=== PATIENT | male | born 1950 | race Caucasian/White ===

== ENCOUNTER 2016-11-20 15:01 | Inpatient (IN) ==
[2016-11-20] MEDS ORDERED: NS 2,000 ML ONE (15:11)
[2016-11-20] MEDS ORDERED: NS 1,000 ML IV ONE ×6 (15:22→18:13)
[2016-11-20] MEDS ORDERED: ZOSYN 3.375 GM/NS 3.375 GM/50 ML IVPB IV ONE (16:19)
--- NOTE | 2016-11-20 16:54 | PROVIDER DOCUMENTATION ---
This chart was entered by Jamie Dyer Scribe, acting as scribe for Cyn May MD. HPI-Neurological Disorder - General Time Seen by Provider: 11/20/16 15:01 Source: EMS, [facility] records Unable to obtain history due to:: altered Allergies/Adverse Reactions: Patient Allergies Allergy/AdvReac Type Severity Reaction Status Date / Time No Known Allergies Allergy Verified 05/01/15 17:43 Home Medications: Home Medication List Medication Instructions Recorded Confirmed Last Taken Type Gabapentin [Neurontin] 800 mg PO TID 10/11/13 05/01/15 04/30/15 21:00 History LISINOpril [Prinivil] 20 mg PO DAILY 10/22/13 05/01/15 04/30/15 21:00 History Montelukast [Singulair] 10 mg PO DAILY 10/22/13 05/01/15 04/30/15 21:00 History Nifedipine [Nifedipine ER] 60 mg PO DAILY 10/22/13 05/01/15 04/30/15 21:00 History Sertraline [Zoloft] 50 mg PO DAILY 10/22/13 05/01/15 04/30/15 21:00 History Simvastatin 40 mg PO HS 10/22/13 05/01/15 04/30/15 21:00 History Cyclobenzaprine [Flexeril] 10 mg PO TID #20 tablet 05/01/15 Unknown Rx Famotidine [Pepcid] 20 mg PO DAILY #20 tablet 05/01/15 Unknown Rx Ibuprofen 400 mg PO Q4-6H PRN PRN #90 tablet 05/01/15 Unknown Rx Metformin E.r. [Glucophage Xr] 500 mg PO BID CC 05/01/15 05/01/15 04/30/15 21: 00 History - History of Present Illness-Neuro Nature of Presenting Problem: patient is a 66 y/o M that presents with respiratory distress and AMS x 1 day. Patient o2 was 83% on RA. patient was also hypotensive. Patient is confused Severity: reports: severe Onset/Duration: reports: gradual, 24 hours ago Timing: reports: still present, getting worse Context: reports: found unresponsive by [facility]dc staff Character of Altered Mental Status: reports: unresponsive, decreased responsiveness Associated Symptoms: reports: confusion. denies: fever/chills Similar Symptoms Previously?: No Recently seen or treated by another doctor?: Yes Review of Systems - Adult - REVIEW OF SYSTEMS - ADULT ROS:: unobtainable per condition Constitutional: reports: see HPI Eyes: reports: no symptoms reported Ears, Nose, Mouth & Throat: reports: no symptoms reported Cardiovascular: reports: no symptoms reported Respiratory: reports: see HPI Gastrointestinal: reports: no symptoms reported Genitourinary: reports: no symptoms reported Musculoskeletal: reports: no symptoms reported Integumentary: reports: no symptoms reported Neurological: reports: see HPI Psychiatric: reports: no symptoms reported Endocrine: reports: no symptoms reported Hematologic/Lymphatic: reports: no symptoms reported Allergic/Immunologic: reports: no symptoms reported All Other Systems: Reviewed and Negative Past History - Adult - PAST MEDICAL HISTORY-ADULT Review of Records: reports: Medications Reviewed Major Childhood Illnesses: reports: denies history Cardiovascular: reports: CAD, CHF, HTN, hyperlipidemia Respiratory: reports: COPD Gastrointestinal: reports: GERD Genitourinary: reports: incontinence Neurological: reports: CVA Psychiatric: reports: depression Other Conditions: reports: other cancer (basal cell carcinoma), other ( neuropathy) - PRIOR SURGERIES/PROCEDURES Surgical/Procedure History: reports: other (prostatectomy, TURP) - PRIOR HOSPITALIZATIONS Prior Hospitalizations: reports: none - IMMUNIZATION STATUS Childhood Immunizations: See Nurse Assessment Flu Vaccine: See Nurse Assessment - FAMILY HISTORY Family History: reviewed, not pertinent - SOCIAL HISTORY Living Situation: care facility Physical Exam- Neurological - Physical Exam-Neuro Exam Limited by: pt condition Initial Vital Signs Reviewed: Yes General Appearance: moderate distress, severe distress, lethargic, slow to respond Eye Exam: bilateral eye: normal inspection, PERRL HENMT: normocephalic/atraumatic, TMs normal, other (dry oral mucosa) Cardiovascular: no JVD, tachycardia Abdominal Exam: normal bowel sounds, non tender, soft Extremity: no pedal edema, pelvis stable Integumentary: normal color, warm/dry Psych/Mental Status: other (lethargic) Progress - CONSULTS/PCP/HOSPITALIST Notification #1 *Consult/PCP/Hospitalist*: Time Discussed: 16:31 Consult Disposition: Will see in ED, Admit Departure - Departure Date of Disposition Decision: 11/20/16 Time of Disposition Decision: 16:47 DIAGNOSIS: Hypotension, Sepsis, Altered mental status Disposition: ADMITTED INPATIENT 09 Certified Medical Emergency: Emergent Condition: Stable Referrals and Follow-Ups: TEOFILO YANG [Primary Care Provider] - - Critical Care Note This patient required my direct & personal management of CC.: Yes Total Time (mins): 45 Critical Care Statement: This patient required my direct personal management to treat or rule out processes, the absence of which, could potentiallly result in sudden, clinically significant life or limb threatening deterioration. This chart was documented by the indicated scribe, (Jamie Dyer, Maritza) and accurately reflects the services I performed and decisions made by me, Cyn May MD, as attested by the provider's signature.
[2016-11-20] MEDS ORDERED: PHENERGAN IM ONE (16:55)
[2016-11-20] MEDS ORDERED: DILAUDID IM ONE (16:55)
[2016-11-20 17:07] LABS: COLOR ORANGE; UR EPITHELIAL CELLS <10 /HPF (<10); URINE BACTERIA NEGATIVE /HPF; URINE RBC <10 /HPF (<10); URINE SOURCE CATH
[2016-11-20 17:08] LABS: BILIRUBIN URINE NEGATIVE (NEGATIVE); BLOOD URINE SMALL (NEGATIVE); GLUCOSE URINE TRACE mg/dL (NEGATIVE); LEUKOCYTES URINE MODERATE (NEGATIVE); NITRITE URINE NEGATIVE (NEGATIVE); PH URINE 5.5; PROTEIN URINE 200 mg/dL (NEGATIVE); SP GRAVITY URINE 1.024; TURBIDITY URINE TURBID (CLEAR); URINE CULTURE NEEDED? YES; URINE MICRO REVIEW NEEDED? YES; UROBILINOGEN URINE NORMAL (NORMAL)
[2016-11-20 17:09] LABS: URINE CASTS GRANULAR PRESENT
[2016-11-20 17:10] LABS: UR AMPHETAMINES QUAL NONE DETECTED (NONE DETECT); UR BARBITUATES QUAL NONE DETECTED (NONE DETECT); UR BENZODIAZEPIN QUAL NONE DETECTED (NONE DETECT); UR CANNABINOIDS QUAL NONE DETECTED (NONE DETECT); UR COCAINE QUAL NONE DETECTED (NONE DETECT); UR METHADONE QUAL NONE DETECTED (NONE DETECT); UR OPIATES QUAL NONE DETECTED (NONE DETECT); UR OXYCODONE QUAL NONE DETECTED (NONE DETECT); UR PCP QUAL NONE DETECTED (NONE DETECT)
--- NOTE | 2016-11-20 17:12 | Diag Imaging Result Doc PS360 ---
EXAM: HEAD W/O CONTRAST HISTORY: FALL TECHNIQUE: Dose reduction protocol COMPARISON: None. FINDINGS: No parenchymal hemorrhage. No epidural or subdural hematoma. No subarachnoid hemorrhage. No mass identified on this noncontrasted exam. No hydrocephalus. There is fluid in the right mastoid sinus and right inner ear. IMPRESSION: No hemorrhage. No injury. Electronically signed by Jd Singleton 11/20/2016 5:09 PM
[2016-11-20 17:14] LABS: INR 1.04; PROTIME 10.9 Seconds (9.2-11.7); PTT 32.5 Seconds (22.0-36.0)
[2016-11-20 17:20] LABS: POTASSIUM 4.4 mmol/L (3.5-5.1)
[2016-11-20 17:21] LABS: ALBUMIN 4.2 g/dL (3.5-5.0); CALCIUM 9.6 mg/dL (8.8-10.2); TOTAL BILIRUBIN 0.3 mg/dL (0.20-1.00); TOTAL PROTEIN 7.5 g/dL (6.3-8.3)
[2016-11-20 17:26] LABS: HEMATOCRIT 43.5 % (42.0-52.0); HEMOGLOBIN 14.8 g/dL (14.0-18.0); LYMPH% 2.5 % (20.5-51.1); MCH 29.4 PG (27-31); MCV 86.5 FL (81-99); MPV 9.9 FL (7.4-10.4); NEUT% 90.8 % (42.2-75.2); PLT 469 X1000 (130-400); RBC 5.03 XMIL (4.7-6.1)
[2016-11-20 17:27] LABS: BASO% 0.1 % (0.0-0.8); IMM GRAN% 0.4 % (0.0-0.5); MONO% 6.2 % (1.7-9.3)
[2016-11-20 17:28] LABS: IMM GRAN# 0.14 X1000 (0.0-0.04); LYMPH# 0.88 X1000 (1.2-3.4); MANUAL DIFF NEEDED? YES; MONO# 2.19 X1000 (0.11-0.59)
[2016-11-20 17:29] LABS: LYMPHS 3 % (21-51); MONO 3 % (1-9)
[2016-11-20 17:55] LABS: ALLEN TEST YES; BE -11.3 mmoll (-3.0-3.0); BLOOD TYPE ARTERIAL; DRAW SITE R RADIAL; METHB 0.9 % (0.0-1.5); O2(CT) 19.6 mL/dL (15.0-23.0); PCO2(98.6) 37 mmHg (35-45); PO2(98.6) 108 mmHg (60-100); SAMPLE BLOOD; SAO2 99.3 % (95.0-100.0); THB 14.3 g/dL (11.5-17.4); pH(98.6) 7.23 (7.35-7.45)
[2016-11-20 17:57] LABS: MODALITY CANNULA
[2016-11-20] MEDS ORDERED: ZOSYN 3.375 GM/NS 3.375 GM/50 ML IVPB IV SCH (18:00)
[2016-11-20] MEDS: MERREM 500 MG in NS 50 ML IV SCH (18:00)
[2016-11-20] MEDS ORDERED: LEVOPHED 8 MG in D5 1/2 NS 250 ML IV SCH (19:30)
--- NOTE | 2016-11-20 19:35 | Diag Imaging Result Doc PS360 ---
EXAM: CHEST-PORTABLE HISTORY: sob TECHNIQUE: Portable AP COMPARISON: 01/02/2015 FINDINGS: The lungs are well expanded. The heart is not enlarged. The vessels are not distended. No consolidation. No pleural effusions identified. There is a small amount of scarring in the upper right lung. IMPRESSION: No acute abnormality. Electronically signed by Jd Singleton 11/20/2016 7:33 PM
--- NOTE | 2016-11-20 20:05 | HISTORY AND PHYSICAL ---
PRIMARY CARE PROVIDER: CHAZ Martin. CHIEF COMPLAINT: Patient is nonverbal but family previously stated that he had respiratory difficulties that started yesterday. HISTORY OF PRESENT ILLNESS: Mr. Irsa Harmon Jr. is a 66-year-old male who currently is nonverbal and medical history is obtained through old ER records which reveals that he has a history of CAD, CHF, hypertension, hyperlipidemia, COPD, GERD, incontinence, CVA , depression, neuropathy who apparently lives with son and [id number] who were not present at this time. Patient just returned from a CAT scan. He is nonverbal. He has difficulty, he is coughing up phlegm requiring deep Yankauer suctioning. Apparently he had low O2 saturations on admit and was placed on nasal cannula. White blood cells revealed was 35,000 but afebrile. His lactate was up at 3.3. He received a couple of L of IV fluids which returned his blood pressure from low 60s to low 100s systolic. Also found to have a creatinine of 8.8 with a baseline in 2015 of 0.8. We will admit to ICU. Consult Infectious Disease, Nephrology and pulmonology for support and assistance. PAST MEDICAL HISTORY: As reported via old ER records. 1. Coronary artery disease. 2. Congestive heart failure, type unknown. 3. Hypertension. 4. Hyperlipidemia. 5. COPD. Apparently he used to have home O2, but being unable to afford oxygen it was removed. 6. GERD.. 7. Urinary incontinence. 8. CVA. 9. Depression. 10. Diabetes mellitus type 2. PAST SURGICAL HISTORY: Obtained through old ER records. 1. Prostatectomy 2. TURP. SOCIAL HISTORY: Unknown. FAMILY HISTORY: Unknown. REVIEW OF SYSTEMS: Unable to obtain. ALLERGIES: No known drug allergies. HOME MEDICATIONS: Unable to be reconciled and have not been updated but it does consist of simvastatin, Zoloft, nifedipine, Singulair, Glucophage, lisinopril, ibuprofen, Neurontin, Pepcid and Flexeril. PHYSICAL EXAMINATION: VITAL SIGNS: Temperature 97.7 degrees, heart rate 118, respiratory rate 31, blood pressure 84/54, saturation 98% on nasal cannula. GENERAL: Mr. Isra Harmon Jr. is a 66-year-old male who is in acute distress. He is unable to answer questions. He will not follow commands. HEENT: Atraumatic, normocephalic. Pupils are equal and reactive. Mucous membranes are moist with thick phlegm and oral secretions. NECK: No JVD or carotid bruits. CARDIOVASCULAR: S1-S2, tachycardic rate and rhythm. No rubs, gallops, murmurs. PULMONARY: Coarse throughout with some mild accessory muscle use and frequently coughing requiring deep oropharyngeal suctioning. Currently on nasal cannula. GASTROINTESTINAL: Soft, round, obese, positive bowel sounds x4, nontender. EXTREMITIES: +1 dorsalis pedal pulses, +2 radial pulses. No edema noted in the lower extremities. NEUROLOGIC: Unable to follow commands, grunts. SKIN: Cool extremities, dry, intact. LABORATORY DATA: White blood cells 35,000, hemoglobin 14, hematocrit 43, platelet count 469,000. INR 1.04. PTT is 32.5. ABGs on 5 L nasal cannula: pH 7.23, pCO2 37, PO2 of 108 , bicarbonate 16, base excess -11, saturation 96%, lactate 1.4 on ABGs. Sodium 137, potassium 4.4 , BUN 65, creatinine 8.8, glucose 160, calcium 9.6, bilirubin 0.30, AST 13, ALT 11, CK 163 , troponin less than 0.01. Plasma lactate: First set 3.3, second set 2.4 after IV fluids. Urinalysis: 200 protein, small blood, moderate leukocytes, 10-20 white blood cells, negative bacteria, granular casts present. Urine drug screen negative. Alcohol 0. IMAGING: Head CT: No hemorrhage or injury. Chest x-ray has been obtained but not resulted. ASSESSMENT AND PLAN: 1. Sepsis with unknown site of origin. Awaiting blood cultures. Chest x-ray is negative. He is afebrile with a lactate of 3.3. He has hypotension requiring 2 IV fluid boluses to improve blood pressure. He has been started on meropenem and Zosyn. Infectious Disease has been consulted. 2. Acute kidney injury, likely acute tubular necrosis. He has had aggressive IV fluid hydration. Renal has been consulted. Renal ultrasound ordered. Urine studies obtained and will withhold any nephrotoxic medications. 3. Metabolic acidosis, again receiving aggressive IV fluid hydration. Nephrology has been consulted. 4. Hypotension likely secondary to sepsic shock. Will receive IV fluid hydration. If needed, we will add Levophed to support blood pressure. 5. History of coronary artery disease. 6. Congestive heart failure, type unknown. We will have echocardiogram performed. 7. Hypertension. Currently hypotensive. 8. Hyperlipidemia. Holding medications. 9. Chronic obstructive pulmonary disease. No exacerbation. Apparently requires home O2. 10. History of cerebrovascular accident. Head CT was negative for any acute findings at this time. 11. Metabolic encephalopathy. Very altered at this time. Currently nonverbal. 12. Gastroesophageal reflux disease.. We will do IV Pepcid. Dictated by CHAZ Asif for Stevie Radford MD cc: CHAZ Asif MD [facility]
[2016-11-20] MEDS: ZOFRAN IV PRN (21:51)
[2016-11-20] MEDS: NS 1,000 ML IV SCH (22:17)
[2016-11-20] MEDS: HEPARIN SUBQ SCH (22:17)
[2016-11-20] MEDS: HUMULIN R SUBQ SCH (22:29)
[2016-11-20] MEDS: ATROVENT NEB INH SCH (23:48)
[2016-11-20] MEDS: XOPENEX NEB INH SCH (23:49)
[2016-11-21] MEDS: MERREM 500 MG in NS 50 ML IV SCH ×3 (02:55→18:35)
[2016-11-21] MEDS: ATROVENT NEB INH SCH ×7 (03:49→22:47)
[2016-11-21] MEDS: XOPENEX NEB INH SCH ×7 (03:49→22:47)
[2016-11-21 05:06] LABS: ALLEN TEST NO; BE -11.8 mmoll (-3.0-3.0); BLOOD TYPE ARTERIAL; DRAW SITE R BRACHIAL; METHB 1.5 % (0.0-1.5); O2(CT) 17.6 mL/dL (15.0-23.0); PCO2(98.6) 34 mmHg (35-45); PO2(98.6) 137 mmHg (60-100); SAMPLE BLOOD; THB 12.8 g/dL (11.5-17.4); pH(98.6) 7.24 (7.35-7.45)
[2016-11-21 05:11] LABS: MODALITY CANNULA
[2016-11-21 05:43] LABS: HEMATOCRIT 37.6 % (42.0-52.0); HEMOGLOBIN 12.7 g/dL (14.0-18.0); IMM GRAN% 0.4 % (0.0-0.5); LYMPH# 1.38 X1000 (1.2-3.4); LYMPH% 5.1 % (20.5-51.1); MANUAL DIFF NEEDED? YES; MCH 29.6 PG (27-31); MCHC 33.8 g/dL (33-37); MCV 87.6 FL (81-99); MONO# 2.47 X1000 (0.11-0.59); MONO% 9.1 % (1.7-9.3); MPV 9.7 FL (7.4-10.4); NEUT% 85.4 % (42.2-75.2); PLT 371 X1000 (130-400); RBC 4.29 XMIL (4.7-6.1)
[2016-11-21] MEDS: MUCOMYST 20% INH SCH ×3 (05:48→19:19)
[2016-11-21] MEDS: PULMICORT INH SCH ×3 (05:48→19:19)
[2016-11-21 05:51] LABS: CALCIUM 8.4 mg/dL (8.8-10.2); POTASSIUM 3.6 mmol/L (3.5-5.1); TOTAL BILIRUBIN 0.18 mg/dL (0.20-1.00); TOTAL PROTEIN 6.5 g/dL (6.3-8.3)
[2016-11-21 06:13] LABS: INR 1.05; PROTIME 11.1 Seconds (9.2-11.7); PTT 29.9 Seconds (22.0-36.0)
[2016-11-21] MEDS: NS 1,000 ML IV SCH ×5 (06:25→21:43)
[2016-11-21] MEDS: HUMULIN R SUBQ SCH ×4 (06:29→20:37)
--- NOTE | 2016-11-21 06:30 | Diag Imaging Result Doc PS360 ---
EXAM: CHEST-PORTABLE HISTORY: NG TUBE PLACEMENT TECHNIQUE: Portable chest abdomen COMPARISON: 11/20/2016 FINDINGS: No nasogastric tube is identified. A nasogastric tube does not in the stomach. The lung bases are clear. No cardiomegaly. IMPRESSION: No nasogastric tube is identified. Electronically signed by Jd Singleton 11/21/2016 6:27 AM
[2016-11-21 07:39] LABS: BANDS 2 % (0-1); LYMPHS 10 % (21-51); MONO 10 % (1-9)
--- NOTE | 2016-11-21 08:57 | CONSULTATION ---
DATE OF CONSULTATION: 11/21/2016 REFERRING PHYSICIAN: Dr. Quach. CHIEF COMPLAINT: Respiratory distress. HISTORY OF PRESENT ILLNESS: This is a 66-year-old male with past medical history of CAD, CHF, hypertension, hyperlipidemia, COPD, GERD, CVA, depression and diabetes that presented to the hospital with respiratory distress, productive cough, respiratory failure, and renal failure. He was admitted to the intensive care unit for close monitoring and evaluation. Patient is nonverbal and unable to answer questions at this time. History is gleaned from medical records. REVIEW OF SYSTEMS: Unable to obtain. PAST MEDICAL HISTORY: As mentioned in the HPI, otherwise noncontributory. PAST SURGICAL HISTORY: Prostatectomy, TURP. SOCIAL HISTORY: Unknown. FAMILY HISTORY: Unknown. ALLERGIES: No known drug allergies. ACTIVE MEDICATIONS: DuoNebs, Mucomyst, Pulmicort, Humulin R, Atrovent, Xopenex, Merrem, Levophed, Zofran. PHYSICAL EXAMINATION: Vital Signs: Blood pressure 122/65, heart rate 112, respiratory rate 24, temperature 97.9, oxygen saturation 94%. General: Lying in bed, wearing a non-rebreather, nonverbal, mild respiratory distress noted. HEENT: Normocephalic and atraumatic. PERRL. Cardiovascular: Tachycardic rate. S1, S2 present. Chest: Reduced entry with some scattered rhonchi. Abdomen: Soft. Bowel sounds present in all quadrants. Extremities: Distal pulses palpable. +1 edema. Neuro: Unable to assess. LABS/INVESTIGATIONS: WBC 27.08, RBCs 4.29, hemoglobin 12.7, hematocrit 37.6, platelet count 371. Sodium 145, potassium 3.6, chloride 113, carbon dioxide 14, anion gap 18, BUN 69, creatinine 5.2, glucose 108. Blood gas reveals a pH of 7.24, pCO2 of 34, PO2 of 137, HC03 of 15.7, base excess - 11.8, saturated oxygen 99. Chest x-ray performed on 11/20/2016 shows clear lung bases. ASSESSMENT AND PLAN: This is a 66-year-old male with a past medical history mentioned in the history of present illness that was admitted to the intensive care unit for sepsis of unknown origin. Blood cultures pending. He is receiving rehydration with intravenous fluids, Levophed for hypotension. Also has acute kidney injury. Nephrology is following. Echocardiogram ordered for congestive heart failure. He did have some dark brown emesis suctioned through the night. He will receive Pepcid for gastrointestinal prophylaxis. Further recommendations pending diagnostic studies. Thank you for the courtesy of this consult. Dictated by CHAZ Hernandez for Len Goff MD cc: CHAZ Hernandez MD
[2016-11-21] MEDS: HEPARIN SUBQ SCH ×2 (09:19→20:34)
--- NOTE | 2016-11-21 09:53 | PROGRESS NOTE ---
DATE: 11/21/2016 SUBJECTIVE: Mr. Harmon is in restraints. He is really not answer questions just mumbling but does respond to touch and voice. Blood pressure doing a little better. Appears to be a little more comfortable. He is a 66-year-old male who currently is nonverbal and medical history was obtained from old ER records. He has a history of coronary artery disease, congestive heart failure, hypertension, hyperlipidemia, COPD, gastroesophageal reflux and incontinence. CVA, depression, neuropathy. He lives with his son and [id number]. He had return from a CAT scan. He presented to the emergency room having respiratory difficulties. White blood cells were 35,000. Lactate was 3.3. He was admitted with sepsis, unknown etiology. Chest x-ray was negative. Lactate level elevated at 3.3 and hypotension. Gave him IV fluids, and he was started on meropenem and then Zosyn initially. He has acute kidney injury, metabolic acidosis, hypotension. This is with an underlying history of coronary artery disease, congestive heart failure, hypertension, hyperlipidemia, and COPD. PHYSICAL EXAMINATION: Today, he is still requiring stains. He still appears very confused. He is awake and he does mumble but does not answer questions specifically. Temperature 98 degrees, pulse 100, respirations 20, blood pressure 119/67. Pupils are equal and reactive. CVP is less than 6 cm. Lungs are clear in all lung baptiste. Cardiovascular: Regular rate without murmur or S3. Abdomen is soft. Skin is warm and dry. Urine output was over a liter. White count 27,080. Hematocrit 37, platelet count 371,000. Sodium 145, potassium 3.6, chloride 113. BUN 69, creatinine 5.2. Liver functions are normal. Pro-time 11.1. Urine toxicology done on 11/20/2016 was negative. Blood gas yesterday: pH 7.24, pCO2 of 34, PO2 was 137, FiO2 of 36%, O2 saturation 96%. Chest x-ray repeated yesterday. No nasogastric tube identified. Lung bases were clear. ASSESSMENT AND PLAN: Patient admitted with sepsis of unknown origin. Blood cultures pending, received rehydration and a little bit of Levophed. He had acute kidney injury. It appears to be improving. He does have an echocardiogram ordered to look at left ventricular function. Review of his orders. He is on sliding scale insulin. Sugars appear to be between 95 and 129. Blood pressure appears improved. I do not see any change at this point. cc: Solitario Grimes MD
--- NOTE | 2016-11-21 11:34 | CONSULTATION ---
DATE OF CONSULTATION: 11/21/2016 INCOMPLETE REPORT-DICTATION STARTS HERE REASON FOR CONSULTATION: Acute kidney injury. HISTORY OF PRESENT ILLNESS: The patient is unable to give any history. He simply repeats "please help me Erick." The chart reflects past medical history of heart failure, hypertension, hyperlipidemia, COPD, history of a stroke and diabetes. He was brought to the emergency room with respiratory distress, cough, respiratory failure and kidney failure. No other history is obtainable. There is no family. PAST MEDICAL HISTORY: As above. LISTED HOME MEDICATIONS: None are listed. ALLERGIES: None are known. SOCIAL HISTORY, FAMILY HISTORY, AND REVIEW OF SYSTEMS: Otherwise not obtainable. PHYSICAL EXAMINATION: Vital Signs: Blood pressure 119/67, heart rate 101, respirations 20, afebrile. Intake 4.2 L, output 600 mL. There is about 300 mL in the bag from this morning. General: He is a chronically ill man, appears older than stated age. Awake, alert, spontaneously verbalizing, but again only repeats 1 phrase. No acute distress. Skin: Warm and dry. Conjunctivae are pink. Pupils are equal. Faint corneal arcus is present. Oropharynx is dry. Poor dentition. Neck: Supple. Trachea is midline. Neck veins are not visible. Heart: Tachycardic and somewhat irregular. No gallops, murmurs or rubs. Lungs: Have equal breath sounds. Poor participation with exam but no crackles or wheezes or rhonchi are audible. Abdomen: Soft and nontender. Bowel sounds are diminished but present. No organomegaly or masses or bruits. Extremities: Have no edema, clubbing, or cyanosis. Neurologic Exam: Grossly nonfocal and his facial muscles are symmetrical. He moves all extremities. He does follow the simple command to protrude the tongue but then perseverates on that as well. LABORATORY DATA: Sodium 145, potassium 3.6, chloride 113, bicarbonate 14, BUN 69, creatinine 5.2, hemoglobin 12.7, white blood cell count [id number]. Urine with 2+ protein, 1+ blood , moderate leukocytes, negative for bacteria. IMPRESSION: 1. Acute kidney injury. No data in the last 2 years, but his last creatinine was 0.8 in April,. He has not had imaging of the abdomen today. His creatinine has improved with volume resuscitation, and we will continue that intervention today. Check urine electrolytes, and check a renal ultrasound. 2. Acid-base. He has a metabolic acidosis with overlying respiratory acidosis. His anion gap acidosis has both gap and non-gap components. These are consistent with his kidney disease. Given the current pH and our shortage of IV bicarbonate, I will continue to replace him with normal saline and observe. 2. Electrolytes are acceptable. 3. Anemia. His hemoglobin has fallen with volume resuscitation. Hemoconcentration. 4. Leukocytosis. He is on empiric antibiotics. cc: Milo Hilario MD cc: Milo Hilario MD [facility]
--- NOTE | 2016-11-21 12:13 | PROGRESS NOTE ---
DATE: 11/21/2016 ADDENDUM: Note that he had a creatinine of 8.8 when he presented. Presume this is acute tubular necrosis. This is improving. Continue present fluids at 125. We will follow his a basic metabolic profile and check a magnesium again in the morning. Volume status looks good. As I said, his renal function is improving. cc: Solitario Grimes MD
[2016-11-21] MEDS ORDERED: PROTONIX IV SCH (12:30)
[2016-11-21] MEDS ORDERED: SODIUM CHLORIDE 0.9% INJ SCH (12:30)
[2016-11-21] MEDS: SODIUM CHLORIDE 0.9% INJ SCH (13:14)
[2016-11-21] MEDS: PEPCID IV SCH ×2 (13:14→23:59)
[2016-11-21] MEDS: ZOFRAN IV PRN (13:14)
[2016-11-21 13:37] LABS: URINE SOURCE CATH
[2016-11-21 13:44] LABS: BILIRUBIN URINE NEGATIVE (NEGATIVE); BLOOD URINE LARGE (NEGATIVE); COLOR YELLOW; GLUCOSE URINE NEGATIVE (NEGATIVE); LEUKOCYTES URINE MODERATE (NEGATIVE); NITRITE URINE NEGATIVE (NEGATIVE); PROTEIN URINE 70 mg/dL (NEGATIVE); SP GRAVITY URINE 1.017; TURBIDITY URINE HAZY (CLEAR); UROBILINOGEN URINE NORMAL (NORMAL)
[2016-11-21 13:45] LABS: URINE MICRO REVIEW NEEDED? YES
[2016-11-21 13:47] LABS: UR EPITHELIAL CELLS <10 /HPF (<10); URINE BACTERIA NEGATIVE /HPF; URINE RBC TNTC /HPF (<10)
[2016-11-21 13:53] LABS: URINE CASTS NONE SEEN
[2016-11-21 14:01] LABS: UR CREAT RANDOM 229.8 mg/dL (14-26); UR PROT RANDOM 80.7 mg/dL
--- NOTE | 2016-11-21 17:06 | ECHO REPORT ---
ORDER DATE: 11/20/2016 INDICATION: Shortness of breath and coronary artery disease. M-MODE MEASUREMENTS: Right ventricle: Could not be measured. Left ventricle end diastole: Roughly 4.7 cm. Left ventricle end systole: Grossly 3.5 cm. Posterior wall: Grossly 1.2 cm. Interventricular septum: Grossly 1.3 cm. Left atrium: 1.9 cm. Aortic root: 2.9 cm. These are the best estimations. The patient has a very limited acoustic window. SUMMARY OF 2-DIMENSIONAL IMAGIN. This study is technically limits. 2. The lower left ventricular systolic function could not be accurately estimated. Several antunez are not visualized therefore the ejection fraction may be anywhere from normal to mildly impaired. 3. This study needs to be repeated at some point when the patient is in better general condition. 4. The mitral valve appears to be grossly normal as well as the aortic valve. 5. Doppler interrogation could not be carried out with accuracy. 6. The pulmonic valve was not visualized. 7. The tricuspid valve was also not well visualized. 8. The inferior vena cava is probably borderline enlarged. 9. There is no pericardial effusion. Again, this study is extremely limited. It should probably be repeated down the road when the patient is more stable. cc: MD Betsy Santos CRNP
--- NOTE | 2016-11-21 18:28 | CONSULTATION ---
DATE OF CONSULTATION: 11/21/2016 CONCLUSION: Patient is admitted the hospital in a septic condition. The exact origin of his sepsis is uncertain to me at this time. The patient is in renal failure presumably as a result of his sepsis. RECOMMENDATIONS: I agree with treating the patient with meropenem. To this, I am going to add daptomycin, the dose of which will be modified because of the patient's renal failure. DISCUSSION: The patient is unable to provide a history. The history that I obtained about the patient was from review of the data in the computer. The patient became nonverbal and had developed respiratory distress. He was brought to the emergency room and then put in the intensive care unit. MEDICAL HISTORY: Positive for coronary artery disease, congestive heart failure , hypertension, hyperlipidemia, COPD, gastroesophageal reflux disease, urinary incontinence, stroke, depression and diabetes mellitus. PAST SURGICAL HISTORY: Positive for prostatectomy and transurethral resection of the prostate. SOCIAL HISTORY: Unknown. FAMILY HISTORY: Unknown. REVIEW OF SYSTEMS: Unable to be obtained. ALLERGIES: The patient has no known drug allergies. HOME MEDICATIONS: Simvastatin, Zoloft, nifedipine, Singulair, Glucophage, lisinopril, ibuprofen, Neurontin, Pepcid and Flexeril. LABORATORY AND X-RAY STUDIES: CBC with a white count of 27,080, hemoglobin 12.7 , and platelet count 371,000. Patient's blood gases show a pH of 7.24, PO2 of 137, a pCO2 of 34. Patient's creatinine is 5.2, GFR is 11. Liver function studies are normal. Urinalysis showed white cells and red cells, but no bacteria. Urine culture is negative thus far. Blood cultures are pending. Chest x-ray shows clear lung baptiste. Patient is receiving meropenem and to this I am going to add daptomycin. PHYSICAL EXAMINATION: Vital signs: Temperature is 97.1 degrees, pulse 97, respirations 20, blood pressure 104/57. General: This is an ill-appearing, elderly male who is delirious. Head, eyes, ears, nose, and throat: He had noted no drainage was noted from the nose or ears. I could not get a good look into the patient's mouth. Neck: No meningismus. Thorax: Increased AP diameter of the chest. Lungs: Clear to auscultation. Cardiovascular: Heart rate was regular and rapid. Abdomen: Soft and nontender. It does seem a little distended. Neurologic: The patient is delirious. He was saying things that I could not understand at all. He did not answer questions. He did not follow request to move his arms and legs, but on his own he moved both arms and both legs. Integument: No rash noted. Thank you for the consult. cc: Maykel Moreno MD MTDD
[2016-11-21] MEDS ORDERED: CUBICIN 500 MG in NS 100 ML IV SCH ×2 (18:45→20:00)
--- NOTE | 2016-11-21 20:19 | Diag Imaging Result Doc PS360 ---
EXAM: US RENAL 2 (RETROPER) COMPLETE HISTORY: mal TECHNIQUE: Portable COMPARISON: None. FINDINGS: The right kidney measures 11.3 x 4.8 x 5.1 cm. Mild increased renal echotexture. Normal cortical thickness. No renal stones or hydronephrosis. No renal mass. The left kidney measures 12.4 x 4.5 x 5.6 cm. Normal cortical thickness. There is an 8 mm nonobstructing upper pole stone. No hydronephrosis. A 2.2 cm cyst arises from the lower pole. IMPRESSION: 1.Mild increased echotexture which can be seen with medical renal disease 2.Nonobstructing left renal stone as well as a small left renal cyst Electronically signed by Jd Singleton 11/21/2016 8:17 PM
[2016-11-22] MEDS: NS 1,000 ML IV SCH (00:02)
[2016-11-22] MEDS: SODIUM CHLORIDE 0.9% INJ SCH ×3 (01:40→23:46)
[2016-11-22] MEDS: ATROVENT NEB INH SCH ×6 (02:42→23:06)
[2016-11-22] MEDS: XOPENEX NEB INH SCH ×6 (02:42→23:06)
[2016-11-22] MEDS: MERREM 500 MG in NS 50 ML IV SCH ×3 (03:07→15:42)
[2016-11-22 04:13] LABS: ALLEN TEST YES; BE -7.3 mmoll (-3.0-3.0); BLOOD TYPE ARTERIAL; DRAW SITE R RADIAL; METHB 1.4 % (0.0-1.5); O2(CT) 23.8 mL/dL (15.0-23.0); PCO2(98.6) 36 mmHg (35-45); PO2(98.6) 83 mmHg (60-100); SAMPLE BLOOD; SAO2 96.5 % (95.0-100.0); pH(98.6) 7.31 (7.35-7.45)
[2016-11-22 04:14] LABS: MODALITY CANNULA
[2016-11-22 04:44] LABS: MANUAL DIFF NEEDED? NO
[2016-11-22 05:01] LABS: BASO% 0.1 % (0.0-0.8); HEMATOCRIT 35.8 % (42.0-52.0); HEMOGLOBIN 12.4 g/dL (14.0-18.0); IMM GRAN# 0.05 X1000 (0.0-0.04); IMM GRAN% 0.3 % (0.0-0.5); LYMPH# 1.09 X1000 (1.2-3.4); LYMPH% 6.4 % (20.5-51.1); MCH 29.9 PG (27-31); MCHC 34.6 g/dL (33-37); MCV 86.3 FL (81-99); MONO% 8.2 % (1.7-9.3); PLT 351 X1000 (130-400); RBC 4.15 XMIL (4.7-6.1)
--- NOTE | 2016-11-22 05:20 | EKG Report ---
Test Performed on : 11/21/2016 06:29:37 AM Test Reason : chest pain Blood Pressure : / mmHG Vent. Rate : 116 BPM Atrial Rate : 116 BPM P-R Int : 138 ms QRS Dur : 092 ms QT Int : 320 ms P-R-T Axes : 081 030 080 degrees QTc Int : 444 ms Sinus tachycardia. Otherwise normal ECG When compared with ECG of 21-JUN-2014 01:29, No significant change was found Confirmed by Roxanne Reed MD ([id number]) on 11/22/2016 8:19:49 AM
[2016-11-22 05:34] LABS: CALCIUM 8.7 mg/dL (8.8-10.2); POTASSIUM 3.4 mmol/L (3.5-5.1)
--- NOTE | 2016-11-22 05:46 | EKG Report ---
Test Performed on : 11/20/2016 3:09:05 PM Test Reason : AMS Blood Pressure : / mmHG Vent. Rate : 117 BPM Atrial Rate : 117 BPM P-R Int : 130 ms QRS Dur : 084 ms QT Int : 322 ms P-R-T Axes : 082 018 071 degrees QTc Int : 449 ms Sinus tachycardia. Otherwise normal ECG When compared with ECG of 22-DEC-2009 17:52, Sinus rhythm. has replaced Atrial fibrillation. Left anterior fascicular block is no longer present T wave inversion no longer evident in Inferior leads Unconfirmed Result
[2016-11-22] MEDS: HUMULIN R SUBQ SCH ×4 (06:05→20:10)
--- NOTE | 2016-11-22 07:48 | PROGRESS NOTE ---
DATE: 11/22/2016 SUBJECTIVE: Mr. Harmon is doing a little better. He still requires a four point restraint. 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 OBJECTIVE: VITAL SIGNS: Remains afebrile. Temp 97.4 degrees, pulse 100, respirations 16, blood pressure 142/69. HEENT: Pupils are equal, round. He is answering questions. Does know where he is but he thought it was 1979, and he thought the month was May. He does know he is at [facility]. Lungs: Are clear in all lung baptiste. Cardiovascular: Regular rhythm and rate without murmur or S3. Abdomen: Soft. Skin is warm and dry. No pedal edema. LABORATORY: Urine output was 3900, almost 4000 mL[place] [address], hematocrit 35, platelet count 351,000. Chemistry sodium 148, potassium 3.4, chloride 116, BUN 62, creatinine 1.5. Blood sugar 111-105. ASSESSMENT AND PLAN: 1. Was admitted with septic condition, exact origin of sepsis uncertain. Continue present antibiotics. The patient is in renal failure presumably as a result of the sepsis. Treating patient with meropenem. I am going to add daptomycin per Dr. Moreno. Dose is modified because of renal failure. He shows clinical improvement. 2. Acute kidney injury. Suspect ATN. Creatinine was 0.8 in April,. Creatinine is coming down. His imaging of the abdomen was done, I believe yesterday. Electrolytes and acid- base status are stable. 3. Leukocytosis. Suspect from his infection. 4. Confusion and global encephalopathy. Suspect this is multifactorial. Looking at his orders, we will continue present meropenem and daptomycin. Still requires four-point restraint. His normal saline is going at 75 mL an hour. Blood cultures with no growth from the 3rd x 2 and urine culture no growth. cc: Solitario Grimes MD
[2016-11-22] MEDS: MUCOMYST 20% INH SCH ×2 (08:02→19:20)
[2016-11-22] MEDS: PULMICORT INH SCH ×2 (08:03→19:20)
--- NOTE | 2016-11-22 09:06 | PROGRESS NOTE ---
DATE: 11/22/2016 SUBJECTIVE: Mr. Harmon is better today. He is awake, alert. No nausea, vomiting, shortness of breath, etc. OBJECTIVE: Vital Signs: Blood pressure 136/60, heart rate 95, respirations 20, afebrile. Intake 2.1 L. Output 2.6 L. General: No acute distress. Skin: Warm and dry. Eyes: Conjunctivae are pink. Pupils are equal. Neck: Neck veins are not distended. Heart: Regular. Lungs: Have equal breath sounds. No crackles or wheezes. Abdomen: Soft, nontender. Bowel sounds present. Extremities: Have no edema, clubbing, or cyanosis. LABORATORY DATA: Sodium 148, potassium 3.4, chloride 116, bicarbonate 16, BUN 62, creatinine 1.5. IMPRESSION: 1. Acute kidney injury. Likely prerenal, resolving. I will sign off at this time. If I can be of further assistance, please do not hesitate to call. 2. Acid-base, slowly improving. 3. Electrolytes. Mild hypernatremia. This should resolve as he eats and drinks. I will stop his IV fluids today. cc: Milo Hilario MD
[2016-11-22] MEDS: HEPARIN SUBQ SCH ×2 (09:40→20:04)
[2016-11-22] MEDS: PEPCID IV SCH ×2 (13:14→23:46)
--- NOTE | 2016-11-22 19:00 | PROGRESS NOTE ---
DATE: 11/22/2016 PRESENT ILLNESS: The patient came in the hospital in a septic condition with leukocytosis. He appears today to be much better. He is alert. He does not have any complaints, and his laboratory studies are improving. MEDICATIONS: The patient is on a combination of daptomycin and meropenem. PHYSICAL EXAMINATION: Vital Signs: Temperature is 97.8 degrees, pulse 100, respirations 20, blood pressure 146/87. General: This is a somewhat ill-appearing elderly male who is in no acute distress. Lungs: Clear to auscultation. Cardiovascular: Regular heart rate. Abdomen: Soft and nontender. Neurologic: The patient is alert. He can move his extremities. LABORATORY AND X-RAY: There is no new x-ray today. The patient's CBC today shows that the white count has gone from 27,000 to 17,020, hemoglobin 12.4, and platelet count 351,000. Blood gases show a pH of 7.31 a PO2 of 83, and a pCO2 of 36. Creatinine is down to 1.5. The GFR is 47. Blood and urine cultures thus far are sterile. ASSESSMENT AND PLAN: The patient appears to be improving. His white count is down. He is alert. My plan is to continue with the patient's 2 antibiotics, namely daptomycin and meropenem. I have changed the dose today because of the improving kidney infection. COMORBIDITIES: The patient's comorbidities include COPD, gastroesophageal reflux disease, diabetes mellitus, and congestive heart failure. cc: Maykel Moreno MD
[2016-11-22] MEDS: CUBICIN 500 MG in NS 100 ML IV SCH (20:04)
[2016-11-22] MEDS: MERREM 1 GM in NS 50 ML IV SCH (23:08)
[2016-11-23] MEDS: ATROVENT NEB INH SCH ×6 (02:50→23:07)
[2016-11-23] MEDS: XOPENEX NEB INH SCH ×6 (02:50→23:08)
[2016-11-23 03:58] LABS: MANUAL DIFF NEEDED? NO
[2016-11-23 04:08] LABS: ALLEN TEST YES; BE -3.4 mmoll (-3.0-3.0); BLOOD TYPE ARTERIAL; DRAW SITE R RADIAL; O2(CT) 16.8 mL/dL (15.0-23.0); PCO2(98.6) 31 mmHg (35-45); PO2(98.6) 76 mmHg (60-100); SAMPLE BLOOD; SAO2 97.1 % (95.0-100.0); THB 12.6 g/dL (11.5-17.4); pH(98.6) 7.42 (7.35-7.45)
[2016-11-23 04:09] LABS: MODALITY ROOM AIR
[2016-11-23 04:10] LABS: BASO% 0.1 % (0.0-0.8); EOS# 0.02 X1000 (0.0-0.7); EOS% 0.1 % (0.0-10.0); HEMATOCRIT 35.5 % (42.0-52.0); HEMOGLOBIN 12.3 g/dL (14.0-18.0); IMM GRAN# 0.05 X1000 (0.0-0.04); IMM GRAN% 0.3 % (0.0-0.5); LYMPH# 1.44 X1000 (1.2-3.4); MCH 29.5 PG (27-31); MCHC 34.6 g/dL (33-37); MCV 85.1 FL (81-99); MONO# 1.42 X1000 (0.11-0.59); MONO% 8.9 % (1.7-9.3); MPV 9.8 FL (7.4-10.4); NEUT% 81.6 % (42.2-75.2); PLT 344 X1000 (130-400); RBC 4.17 XMIL (4.7-6.1)
[2016-11-23] MEDS: HUMULIN R SUBQ SCH ×4 (06:13→20:30)
[2016-11-23] MEDS: MUCOMYST 20% INH SCH ×2 (07:33→19:27)
[2016-11-23] MEDS: PULMICORT INH SCH ×2 (07:33→19:27)
[2016-11-23] MEDS: MERREM 1 GM in NS 50 ML IV SCH ×3 (08:18→23:54)
[2016-11-23] MEDS: HEPARIN SUBQ SCH ×2 (08:18→20:30)
[2016-11-23] MEDS: PEPCID IV SCH ×2 (12:23→23:48)
[2016-11-23] MEDS: SODIUM CHLORIDE 0.9% INJ SCH ×2 (12:23→23:48)
--- NOTE | 2016-11-23 18:14 | PROGRESS NOTE ---
DATE: 11/23/2016 He remains afebrile. Temp degrees. Respirations 18. Blood pressure 134/99.HEENT: Pupils are equal, round, react to light and accommodation. Oral and nasal mucosa unremarkable. Conjunctivae pink. Sclerae clear. Tympanic membranes intact. Neck: Supple without adenopathy. He seems to be more alert, seems to be more appropriate as far as answering questions. Urine output was 1400 mL. LAB: White count 43182, hematocrit was 35, platelet count 344,000. Chemistry shows blood sugar 186, 133, 134. ASSESSMENT AND PLAN: 1. The patient came in with septic condition, leukocytosis. Appears to be doing much better. Not sure of the etiology. Patient is on daptomycin and meropenem. Seems to be improving. 2. COPD. Gas and air exchange appeared to be good. 3. Gastroesophageal reflux. 4. Diabetes mellitus type 2, blood sugar controlled. 5. History of congestive heart failure. 6. He is having some renal insufficiency, acute kidney injury. This appears to be improving. 7. Review of orders, I do not see any change. cc: Solitario Grimes MD
[2016-11-23] MEDS: ZOFRAN IV PRN (20:30)
[2016-11-23] MEDS: CUBICIN 500 MG in NS 100 ML IV SCH (20:46)
[2016-11-24] MEDS: ATROVENT NEB INH SCH ×6 (02:44→23:30)
[2016-11-24] MEDS: XOPENEX NEB INH SCH ×6 (02:44→23:30)
[2016-11-24 04:25] LABS: ALLEN TEST YES; BE -1.2 mmoll (-3.0-3.0); BLOOD TYPE ARTERIAL; DRAW SITE R RADIAL; METHB 1.2 % (0.0-1.5); O2(CT) 16.5 mL/dL (15.0-23.0); PCO2(98.6) 33 mmHg (35-45); PO2(98.6) 88 mmHg (60-100); SAMPLE BLOOD; SAO2 97.7 % (95.0-100.0); THB 12.2 g/dL (11.5-17.4); pH(98.6) 7.44 (7.35-7.45)
[2016-11-24 04:26] LABS: MODALITY ROOM AIR
[2016-11-24 04:42] LABS: MANUAL DIFF NEEDED? NO
[2016-11-24 04:45] LABS: BASO% 0.1 % (0.0-0.8); EOS# 0.14 X1000 (0.0-0.7); HEMATOCRIT 34.4 % (42.0-52.0); IMM GRAN# 0.03 X1000 (0.0-0.04); IMM GRAN% 0.2 % (0.0-0.5); LYMPH# 2.13 X1000 (1.2-3.4); LYMPH% 14.7 % (20.5-51.1); MCH 29.7 PG (27-31); MCHC 34.9 g/dL (33-37); MCV 85.1 FL (81-99); MONO# 1.43 X1000 (0.11-0.59); MONO% 9.9 % (1.7-9.3); MPV 9.7 FL (7.4-10.4); NEUT% 74.1 % (42.2-75.2); PLT 332 X1000 (130-400); RBC 4.04 XMIL (4.7-6.1)
[2016-11-24] MEDS: HUMULIN R SUBQ SCH ×4 (06:15→21:39)
[2016-11-24] MEDS: PULMICORT INH SCH ×2 (07:37→19:55)
[2016-11-24] MEDS: MUCOMYST 20% INH SCH ×2 (07:37→19:55)
[2016-11-24] MEDS: HEPARIN SUBQ SCH ×2 (08:14→21:38)
[2016-11-24] MEDS: MERREM 1 GM in NS 50 ML IV SCH ×3 (08:14→23:03)
--- NOTE | 2016-11-24 09:47 | PROGRESS NOTE ---
DATE: 11/24/2016 SUBJECTIVE: Mr. Harmon is feeling much better. He is sitting up eating breakfast. Still a little weak and unstable on his feet. His Lund catheter is out. So, the plan is to move him to the floor and try to work on his strength. Hopefully, he can go home soon. I did talk to, I believe, his [id number], who he stays with. OBJECTIVE: Temperature 97.3 degrees, pulse 78, respirations 16, blood pressure 141/80. Pupils are equal and round. Lungs are clear in all lung baptiste. Cardiovascular: Regular rhythm and rate without murmur or S3. Urine output is 850 mL. LABORATORY DATA: White count of 14,470 which is coming down. Hematocrit is 34, platelet count 332,000. Blood sugar is 133, 134, and 141. ASSESSMENT AND PLAN: 1. Patient presented with septic condition and leukocytosis. Did not find the etiology of infection. He is on daptomycin and meropenem and seems to be improving clinically. White count is coming down. 2. Chronic obstructive pulmonary disease. Gas exchange and air exchange seem to be good right now. 3. Gastroesophageal reflux disease, aware. 4. Diabetes mellitus, type 2. Continue follow pattern sugars. His blood sugars have been 133, 134, 141. So, they appear to be in good alignment. I will move him to the floor. Continue physical therapy. I would like to keep the antibiotics going, and he is on a combination of daptomycin and meropenem; keep this going until the leukocytosis has resolved. Will work on his strength and conditioning. Lund catheter is out. cc: Solitario Grimes MD
[2016-11-24] MEDS: PEPCID IV SCH (14:40)
[2016-11-24] MEDS: SODIUM CHLORIDE 0.9% INJ SCH (14:40)
--- NOTE | 2016-11-24 18:05 | PROGRESS NOTE ---
DATE: 11/24/2016 PRESENT ILLNESS: The patient was admitted to the hospital with presumed sepsis including leukocytosis. He has improved each day. MEDICATIONS: The patient is on daptomycin and meropenem. PHYSICAL EXAMINATION: Vital Signs: Temperature is 98, pulse 70, respirations 18, blood pressure 146/82. General: This is a fairly healthy-appearing, elderly male. He is in no acute distress. ENT: Patient is missing most of his teeth. The ones that he does have are in poor oral hygiene. Neck: No meningismus. Lungs: Clear to auscultation. Cardiovascular: Regular heart rate. Abdomen: Soft and nontender. Neurologic: Patient is alert. He can move his extremities. The patient is definitely improving. He does not have any complaints. LABS AND RADIOLOGY: No new radiographic study. CBC: WBC-14.47, hgb-12, platelets-332K. ASSESSMENT AND PLAN: The patient has leukocytosis and appeared to be septic. The plan now will be to continue with daptomycin and meropenem. COMORBIDITIES: This patient include COPD, gastroesophageal reflux disease, diabetes mellitus, and congestive heart failure. cc: Maykel Moreno MD [facility]
[2016-11-24] MEDS: CUBICIN 500 MG in NS 100 ML IV SCH (21:38)
[2016-11-25] MEDS: SODIUM CHLORIDE 0.9% INJ SCH (00:25)
[2016-11-25] MEDS: PEPCID IV SCH (00:25)
[2016-11-25] MEDS: ZOFRAN IV PRN (01:01)
[2016-11-25] MEDS: XOPENEX NEB INH SCH ×3 (03:50→11:23)
[2016-11-25] MEDS: ATROVENT NEB INH SCH ×3 (03:50→11:22)
[2016-11-25 04:50] LABS: ALLEN TEST YES; BLOOD TYPE ARTERIAL; DRAW SITE R RADIAL; METHB 1.3 % (0.0-1.5); O2(CT) 15.6 mL/dL (15.0-23.0); PCO2(98.6) 37 mmHg (35-45); PO2(98.6) 62 mmHg (60-100); SAMPLE BLOOD; SAO2 94.9 % (95.0-100.0); pH(98.6) 7.48 (7.35-7.45)
[2016-11-25 04:52] LABS: MODALITY ROOM AIR
[2016-11-25 05:22] LABS: MANUAL DIFF NEEDED? NO
[2016-11-25 05:26] LABS: BASO% 0.2 % (0.0-0.8); EOS% 4.2 % (0.0-10.0); HEMATOCRIT 35.9 % (42.0-52.0); HEMOGLOBIN 12.3 g/dL (14.0-18.0); IMM GRAN# 0.05 X1000 (0.0-0.04); IMM GRAN% 0.4 % (0.0-0.5); LYMPH# 2.42 X1000 (1.2-3.4); LYMPH% 20.5 % (20.5-51.1); MCH 29.6 PG (27-31); MCHC 34.3 g/dL (33-37); MCV 86.5 FL (81-99); MONO# 1.19 X1000 (0.11-0.59); MONO% 10.1 % (1.7-9.3); MPV 9.6 FL (7.4-10.4); NEUT% 64.6 % (42.2-75.2); PLT 320 X1000 (130-400); RBC 4.15 XMIL (4.7-6.1)
[2016-11-25] MEDS: HUMULIN R SUBQ SCH ×2 (06:43→12:14)
[2016-11-25] MEDS: MUCOMYST 20% INH SCH (07:49)
[2016-11-25] MEDS: PULMICORT INH SCH (07:50)
[2016-11-25] MEDS: MERREM 1 GM in NS 50 ML IV SCH (08:21)
[2016-11-25] MEDS: HEPARIN SUBQ SCH (08:21)
--- NOTE | 2016-11-25 11:15 | DISCHARGE SUMMARY ---
ADMISSION DATE: 11/20/2016 DISCHARGE DATE: 11/25/2016 HISTORY AND HOSPITAL COURSE: This is a 66-year-old white male who was nonverbal when he presented. Stated that he was having respiratory difficulties that started the day before. He sees CHAZ Martin. This is a 66-year-old male, was nonverbal when he presented but medical history was obtained through the ER records. He has a history of coronary artery disease, congestive heart failure, hypertension, hyperlipidemia, COPD, gastroesophageal reflux disease, incontinence, CVA, depression, and neuropathy. Apparently lives with his son and [id number]. The patient had return from CAT scan. He was coughing up phlegm, requiring deep Yankauer suction. Apparently his O2 saturations were low and he was put on nasal cannula. White count was elevated at 35,000 and lactate level was 3.3. So, he was admitted with infection and sepsis. We never did identify the source. He was continued on antibiotics and given plenty of IV fluids. Blood pressure started coming up. Noted he had acute kidney injury, most likely ATN, and this improved after several days. We did know he had underlying coronary artery disease but did not see any active cardiac ischemia. He has a history of congestive heart failure, so an echocardiogram was obtained on 11/20/2016 and technically limited study. Systolic ejection fraction appeared to be normal to maybe mildly impaired. No gross valvular abnormality. The patient showed steady improvement. Dr. Hilario was involved, watching renal function which improved. Diet was advanced. Physical therapy started. Lund catheter was taken out and he seemed to be doing better. Blood cultures were unremarkable. We had him on daptomycin and meropenem. Leukocytosis came down every day. Today it is 11,790, normal differential. He had no growth from blood cultures on 11/20 or anything show up on the sputum culture from 11/22. So felt like he could go home on 11/25/2016. DISCHARGE MEDICATIONS: The patient was taking Pepcid 20 mg daily, Neurontin 800 mg t.i.d., ibuprofen p.r.n., Prinivil 20 mg a day, metformin 500 mg b.i.d., Singulair 10 mg a day, nifedipine 60 mg daily, Zoloft 50 mg a day, and simvastatin 40 mg at bedtime. FOLLOW-UP: He will follow up with his nurse practitioner, CHAZ Martin. cc: Solitario Grimes MD
[2017-03-01 17:00] VITALS: BP 62/42
== END 2016-11-25 13:29 | disposition home or self-care (01) ==
LOC: ED 15:01 → ICU 17:44 → SUATTDRO 17:44 → 4N 11-24 11:39
PROVIDERS: ATTEND Emergency Medicine